=== PATIENT | male | born 2005 | race Caucasian/White ===

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

== ENCOUNTER 2024-09-15 17:35 | Emergency (ER) | payer MEDICAID, OTHER ==
[~2024-09-15] VITALS: Ht 188 cm; Wt 73.0 kg
[2024-09-15] MEDS ORDERED: ACETAMINOPHEN 500 MG TAB PO ONE (20:15)
[2024-09-15] MEDS ORDERED: AMOXICILLIN/CLAVULANATE K 875 MG TAB PO ONE (20:15)
[2024-09-15] MEDS ORDERED: DIPHTH,PERTUSS(ACELL),TET VAC 0.5 ML SYRINGE IM ONE (20:30)
[2024-09-15] MEDS ORDERED: AMOX TR-K CLV1 EAC1 PO (20:46)
[2024-09-15 21:08] VITALS: BP 133/76
== END 2024-09-15 21:09 | disposition home or self-care (01) ==
LOC: ED 17:35
DX: S61.452A Open bite of left hand, initial encounter (principal); W54.0XXA Bitten by dog, initial encounter
CPT/HCPCS: 73130; 90471; 90715; 99283-25; A9270